=== PATIENT | male | born 1980 | race Caucasian/White ===

== ENCOUNTER 2023-08-23 18:47 | Inpatient (IN) | payer OTHER, MEDICAID ==
[~2023-08-23] VITALS: Ht 175.3 cm; Wt 74.0 kg
[2023-08-23 18:47] VITALS: BP_SYST 117; PULSE 73; RESP 18; TEMP 97.2; O2SAT 100
[2023-08-23] MEDS ORDERED: ASPIRIN 81 MG TAB.CHEW PO ONE (19:15)
[2023-08-23 20:23] LABS: BASOPHILS % (AUTO) 0.3 % (0.0-2.0); EOSINOPHILS % (AUTO) 0.8 % (0.0-4.0); HEMATOCRIT 22.5 % (36-54); HEMOGLOBIN 7.2 g/dL (14.0-18.0); LYMPHOCYTES # (AUTO) 0.9 K/uL (1.0-5.5); LYMPHOCYTES % (AUTO) 19.5 % (20.5-51.5); MEAN CORPUSCULAR HEMOGLOBIN 30 pg (27-31); MEAN CORPUSCULAR HGB CONC 32 % (32-36); MEAN CORPUSCULAR VOLUME 92 fL (79.0-98.0); MONOCYTES # (AUTO) 0.5 K/uL (0.0-1.0); MONOCYTES % (AUTO) 9.6 % (1.7-9.3); NEUTROPHILS # (AUTO) 3.3 K/uL (1.8-7.7); NEUTROPHILS % (AUTO) 69.8 % (40.0-70.0); PLATELET COUNT (AUTO) 293 K/uL (130-430); RED BLOOD CELL COUNT(AUTO) 2.45 MIL/uL (4.2-6.2); RED CELL DISTRIBUTION WIDTH 14.6 % (9.0-15.0); WHITE BLOOD COUNT (AUTO) 4.7 K/uL (4.8-10.8)
[2023-08-23] MEDS ORDERED: NACL 0.9% 1,000 ML IV ONE (20:30)
[2023-08-23] MEDS ORDERED: ATROPINE SULFATE 1 MG/10 ML SYRINGE IVP ONE (21:13)
[2023-08-23 21:23] LABS: ANION GAP 8 (5-15); CALCIUM 9.4 mg/dL (8.4-11.0); CARBON DIOXIDE 32 mmol/L (23-29); CHLORIDE 98 mmol/L (98-107); GFR AFRICAN AMERICAN 40 mL/min (>90); GLUCOSE 98 mg/dL (74-106); POTASSIUM 3.1 mmol/L (3.5-5.1); SODIUM SERUM 138 mmol/L (136-145); UREA NITROGEN, BLOOD 25 mg/dL (8-21)
[2023-08-23 21:25] LABS: GFR NON AFRICAN-AMERICAN 33 mL/min (>90)
[2023-08-23 21:40] LABS: ALANINE AMINOTRANSFERASE 86 U/L (12-78); ALBUMIN 2.6 g/dL (3.4-4.8); ASPARTATE AMINOTRANSFERASE 36 U/L (10-37); BILIRUBIN,DIRECT 0.2 mg/dL (0.0-0.3); TOTAL BILIRUBIN 0.7 mg/dL (0.0-1.0); TOTAL PROTEIN, SERUM 7.4 g/dL (6.4-8.3)
[2023-08-23] MEDS ORDERED: DOPamine PREMIX 250 ML IV ONE ×2 (22:41→23:00)
[2023-08-23 22:46] LABS: ABG O2 SAT% ESTIMATE 98.7 % (94.0-100.0); BLOOD GAS BASE EXCESS 8.9 mmol/L (-3.0-3.0); BLOOD GAS HCO3 29.7 mmol/L (21.0-27.0); BLOOD GAS PCO2 29.6 mmHg (32.0-45.0); BLOOD GAS PH 7.619 (7.350-7.450); BLOOD GAS PO2 111.2 mmHg (75.0-100.0)
[2023-08-23 23:06] LABS: BILIRUBIN,URINE NEGATIVE (NEGATIVE); BLOOD, URINE NEGATIVE (NEGATIVE); CLARITY/URINE CLEAR (CLEAR); COLOR,URINE YELLOW (YELLOW); GLUCOSE,URINE NEGATIVE (NEGATIVE); KETONES,URINE NEGATIVE (NEGATIVE); LEUKOCYTE ESTERASE ,URINE NEGATIVE (NEGATIVE); NITRITE, URINE POSITIVE (NEGATIVE); PH,URINE 7.5 (5.0-8.0); PROTEIN URINE 2+ (NEGATIVE); UROBILINOGEN,URINE 0.2 (0.2-1.0)
[2023-08-23 23:47] LABS: BACTERIA,URINE MODERATE /HPF (None Seen)
[2023-08-24] VITALS (32 sets, daily range): BP systolic 104–136; PULSE 62–98; RESP 14–26; TEMP 97.3–100.8; O2SAT 95–100
[2023-08-24] MEDS ORDERED: HYDR-4038 GT (00:32)
[2023-08-24] MEDS ORDERED: NEUTPHOSP GT (00:32)
[2023-08-24] MEDS ORDERED: ASCO500T20 GT (00:32)
[2023-08-24] MEDS ORDERED: NEPH GT (00:32)
[2023-08-24] MEDS ORDERED: LEVE1000 GT (00:32)
[2023-08-24] MEDS ORDERED: ACID1CAP2 GT (00:32)
[2023-08-24] MEDS ORDERED: ASA81 GT (00:32)
[2023-08-24] MEDS ORDERED: AMIN887L GT (00:32)
[2023-08-24] MEDS ORDERED: AMIO200T66 GT (00:32)
[2023-08-24] MEDS ORDERED: DOCU-144 GT (00:32)
[2023-08-24] MEDS ORDERED: MINE3.5O OP (00:32)
[2023-08-24] MEDS ORDERED: METO-290 GT (00:32)
[2023-08-24] MEDS ORDERED: ACET325T GT (00:32)
[2023-08-24 01:29] LABS: COVID19 ANTIGEN SOFIA FIA NEGATIVE (NEGATIVE)
[2023-08-24 01:30] LABS: INFLUENZA TYPE A Negative (NEGATIVE); INFLUENZA TYPE B NEGATIVE (NEGATIVE)
[2023-08-24] MEDS ORDERED: DOPamine PREMIX 250 ML IV PRN (02:45)
[2023-08-24 05:53] LABS: BASOPHILS % (AUTO) 0.7 % (0.0-2.0); EOSINOPHILS # (AUTO) 0.1 K/uL (0.0-0.4); EOSINOPHILS % (AUTO) 1.3 % (0.0-4.0); HEMATOCRIT 24.3 % (36-54); HEMOGLOBIN 7.9 g/dL (14.0-18.0); LYMPHOCYTES # (AUTO) 1.7 K/uL (1.0-5.5); LYMPHOCYTES % (AUTO) 23.9 % (20.5-51.5); MEAN CORPUSCULAR HEMOGLOBIN 30 pg (27-31); MEAN CORPUSCULAR HGB CONC 33 % (32-36); MEAN CORPUSCULAR VOLUME 92 fL (79.0-98.0); MONOCYTES # (AUTO) 0.6 K/uL (0.0-1.0); MONOCYTES % (AUTO) 8.9 % (1.7-9.3); NEUTROPHILS # (AUTO) 4.6 K/uL (1.8-7.7); NEUTROPHILS % (AUTO) 65.2 % (40.0-70.0); PLATELET COUNT (AUTO) 309 K/uL (130-430); RED BLOOD CELL COUNT(AUTO) 2.64 MIL/uL (4.2-6.2); RED CELL DISTRIBUTION WIDTH 14.8 % (9.0-15.0); WHITE BLOOD COUNT (AUTO) 7.1 K/uL (4.8-10.8)
[2023-08-24 06:20] LABS: ALBUMIN 2.7 g/dL (3.4-4.8); CALCIUM 9.6 mg/dL (8.4-11.0); CREATININE 2.62 mg/dL (0.55-1.30); THYROID STIMULATING HORMONE 0.82 uIu/mL (0.34-4.82); TOTAL BILIRUBIN 0.9 mg/dL (0.0-1.0)
[2023-08-24] MEDS ORDERED: NALOXONE HCL 0.4 MG/ML AMP (NARCAN) IVP PRN ×2 (07:45)
[2023-08-24] MEDS ORDERED: MAGNESIUM SULFATE 50 ML IV PRN (07:45)
[2023-08-24] MEDS ORDERED: DOCUSATE SODIUM 100 MG CAPSULE PO PRN (07:45)
[2023-08-24] MEDS ORDERED: ONDANSETRON HCL 4 MG/2 ML VIAL IVP PRN (07:45)
[2023-08-24] MEDS ORDERED: ZOLPIDEM TARTRATE 5 MG TABLET PO PRN (07:45)
[2023-08-24] MEDS ORDERED: MUPIROCIN 2% TOPICAL OINTMENT 22 GM NS PRN (07:45)
[2023-08-24] MEDS ORDERED: MORPHINE 2 MG/ML INJ. SYRINGE IVP PRN ×2 (07:45)
[2023-08-24] MEDS ORDERED: LORazepam 2 MG/ML VIAL IVP PRN (07:45)
[2023-08-24] MEDS ORDERED: LEVE500S9 GT (08:34)
[2023-08-24 08:36] LABS: TOTAL PROTEIN, SERUM 7.5 g/dL (6.4-8.3)
[2023-08-24] MEDS ORDERED: ACETAMINOPHEN 325 MG TABLET PO PRN ×2 (08:45)
[2023-08-24] MEDS: NAPH,MB-DB/K PH,MBDB 250 MG TAB GT SCH ×2 (10:18→20:03)
[2023-08-24] MEDS: AMIODARONE HCL 200 MG TABLET GT SCH ×2 (10:18→20:02)
[2023-08-24] MEDS: POTASSIUM CHLORIDE 20 MEQ TABLET.ER PO PRN (10:19)
[2023-08-24] MEDS: cefTRIAXone 1 GM in D5W 50 ML IV SCH (10:19)
[2023-08-24] MEDS: ASPIRIN 81 MG TAB.CHEW GT SCH (10:19)
[2023-08-24] MEDS: HEPARIN SODIUM,PORCINE 5,000 UNITS/ML VIAL SUBCUT SCH ×2 (10:20→21:01)
[2023-08-24] MEDS: LevETIRAcetam 500 MG/5 ML UDC ORAL LIQUID GT SCH ×2 (10:21→20:03)
[2023-08-24] MEDS ORDERED: BALSAM PERU/CASTOR OIL 56.7 GM OINT...G. TP ONE (12:30)
[2023-08-24] MEDS ORDERED: MINERAL OIL/PETROLATUM,WHITE 3.5 GM EYE OINT. OP PRN ×2 (15:00→15:21)
[2023-08-24] MEDS ORDERED: PEG 400/HYPROMELLOSE/GLYCERIN 15 ML DROPS OP PRN (15:00)
[2023-08-25] VITALS (30 sets, daily range): BP systolic 99–128; PULSE 64–83; RESP 14–22; TEMP 98–100.2; O2SAT 94–99
[2023-08-25 06:47] LABS: CREATININE 4.09 mg/dL (0.55-1.30); POTASSIUM 3.1 mmol/L (3.5-5.1)
[2023-08-25 07:30] LABS: BASOPHILS % (AUTO) 0.6 % (0.0-2.0); EOSINOPHILS # (AUTO) 0.1 K/uL (0.0-0.4); EOSINOPHILS % (AUTO) 1.6 % (0.0-4.0); LYMPHOCYTES # (AUTO) 1.2 K/uL (1.0-5.5); LYMPHOCYTES % (AUTO) 27.8 % (20.5-51.5); MEAN CORPUSCULAR HEMOGLOBIN 30 pg (27-31); MEAN CORPUSCULAR HGB CONC 33 % (32-36); MEAN CORPUSCULAR VOLUME 93 fL (79.0-98.0); MONOCYTES # (AUTO) 0.3 K/uL (0.0-1.0); MONOCYTES % (AUTO) 7.3 % (1.7-9.3); NEUTROPHILS # (AUTO) 2.8 K/uL (1.8-7.7); NEUTROPHILS % (AUTO) 62.7 % (40.0-70.0); PLATELET COUNT (AUTO) 311 K/uL (130-430); RED BLOOD CELL COUNT(AUTO) 2.18 MIL/uL (4.2-6.2); RED CELL DISTRIBUTION WIDTH 14.9 % (9.0-15.0); WHITE BLOOD COUNT (AUTO) 4.4 K/uL (4.8-10.8)
[2023-08-25 08:22] LABS: HEMATOCRIT 20.3 % (36-54); HEMOGLOBIN 6.6 g/dL (14.0-18.0)
[2023-08-25] MEDS: NAPH,MB-DB/K PH,MBDB 250 MG TAB GT SCH ×2 (10:08→20:46)
[2023-08-25] MEDS: ASPIRIN 81 MG TAB.CHEW GT SCH (10:08)
[2023-08-25] MEDS: LevETIRAcetam 500 MG/5 ML UDC ORAL LIQUID GT SCH ×2 (10:08→20:46)
[2023-08-25] MEDS: POTASSIUM CHLORIDE 20 MEQ TABLET.ER PO PRN (10:08)
[2023-08-25] MEDS: cefTRIAXone 1 GM in D5W 50 ML IV SCH (10:09)
[2023-08-25] MEDS: AMIODARONE HCL 200 MG TABLET GT SCH ×2 (10:09→20:46)
[2023-08-25] MEDS: BALSAM PERU/CASTOR OIL 56.7 GM OINT...G. TP SCH (10:11)
[2023-08-25] MEDS: HEPARIN SODIUM,PORCINE 5,000 UNITS/ML VIAL SUBCUT SCH ×2 (10:14→20:47)
[2023-08-25] MEDS ORDERED: VANCOMYCIN HCL 1,250 MG in NS 250 ML IV ONE (11:00)
[2023-08-25] MEDS ORDERED: HEPARIN SODIUM, PORCINE 10,000 UNITS/ 10 ML VIAL MC ONE (12:00)
[2023-08-25] MEDS ORDERED: EPOETIN ALFA 3,000 UNITS/ML VIAL SUBCUT SCH (19:30)
[2023-08-26] VITALS (19 sets, daily range): BP systolic 105–135; PULSE 67–98; RESP 16–18; TEMP 98.3–99.3; O2SAT 97–100
[2023-08-26 06:33] LABS: BASOPHILS # (AUTO) 0.1 K/uL (0.0-0.2); BASOPHILS % (AUTO) 0.9 % (0.0-2.0); EOSINOPHILS # (AUTO) 0.1 K/uL (0.0-0.4); EOSINOPHILS % (AUTO) 1.6 % (0.0-4.0); HEMATOCRIT 25.2 % (36-54); HEMOGLOBIN 8.1 g/dL (14.0-18.0); LYMPHOCYTES # (AUTO) 1.3 K/uL (1.0-5.5); LYMPHOCYTES % (AUTO) 23.9 % (20.5-51.5); MEAN CORPUSCULAR HEMOGLOBIN 30 pg (27-31); MEAN CORPUSCULAR HGB CONC 32 % (32-36); MEAN CORPUSCULAR VOLUME 93 fL (79.0-98.0); MONOCYTES # (AUTO) 0.4 K/uL (0.0-1.0); MONOCYTES % (AUTO) 6.5 % (1.7-9.3); NEUTROPHILS # (AUTO) 3.7 K/uL (1.8-7.7); NEUTROPHILS % (AUTO) 67.1 % (40.0-70.0); PLATELET COUNT (AUTO) 291 K/uL (130-430); RED BLOOD CELL COUNT(AUTO) 2.71 MIL/uL (4.2-6.2); WHITE BLOOD COUNT (AUTO) 5.5 K/uL (4.8-10.8)
[2023-08-26 07:07] LABS: CREATININE 3.09 mg/dL (0.55-1.30); POTASSIUM 4.1 mmol/L (3.5-5.1)
[2023-08-26] MEDS: cefTRIAXone 1 GM in D5W 50 ML IV SCH (09:04)
[2023-08-26] MEDS: NAPH,MB-DB/K PH,MBDB 250 MG TAB GT SCH ×2 (09:05→22:03)
[2023-08-26] MEDS: ASPIRIN 81 MG TAB.CHEW GT SCH (09:05)
[2023-08-26] MEDS: AMIODARONE HCL 200 MG TABLET GT SCH ×2 (09:05→22:03)
[2023-08-26] MEDS: LevETIRAcetam 500 MG/5 ML UDC ORAL LIQUID GT SCH ×2 (09:10→22:03)
[2023-08-26] MEDS: HEPARIN SODIUM,PORCINE 5,000 UNITS/ML VIAL SUBCUT SCH ×2 (09:12→22:05)
[2023-08-26] MEDS: BALSAM PERU/CASTOR OIL 56.7 GM OINT...G. TP SCH (09:15)
[2023-08-26] MEDS ORDERED: VANCOMYCIN HCL 1,000 MG in NS 250 ML IV ONE (13:00)
[2023-08-27] VITALS (17 sets, daily range): BP systolic 103–149; PULSE 63–84; RESP 16; TEMP 97.8–98.9; O2SAT 92–100
[2023-08-27 04:53] LABS: BASOPHILS % (AUTO) 0.7 % (0.0-2.0); EOSINOPHILS # (AUTO) 0.1 K/uL (0.0-0.4); EOSINOPHILS % (AUTO) 1.8 % (0.0-4.0); HEMATOCRIT 24.5 % (36-54); HEMOGLOBIN 7.8 g/dL (14.0-18.0); LYMPHOCYTES # (AUTO) 1.4 K/uL (1.0-5.5); LYMPHOCYTES % (AUTO) 26.2 % (20.5-51.5); MEAN CORPUSCULAR HEMOGLOBIN 30 pg (27-31); MEAN CORPUSCULAR HGB CONC 32 % (32-36); MEAN CORPUSCULAR VOLUME 94 fL (79.0-98.0); MONOCYTES # (AUTO) 0.3 K/uL (0.0-1.0); MONOCYTES % (AUTO) 5.8 % (1.7-9.3); NEUTROPHILS # (AUTO) 3.6 K/uL (1.8-7.7); NEUTROPHILS % (AUTO) 65.5 % (40.0-70.0); PLATELET COUNT (AUTO) 283 K/uL (130-430); RED BLOOD CELL COUNT(AUTO) 2.61 MIL/uL (4.2-6.2); WHITE BLOOD COUNT (AUTO) 5.5 K/uL (4.8-10.8)
[2023-08-27 05:13] LABS: CALCIUM 9.1 mg/dL (8.4-11.0); CREATININE 3.99 mg/dL (0.55-1.30); POTASSIUM 4.1 mmol/L (3.5-5.1)
[2023-08-27] MEDS: NAPH,MB-DB/K PH,MBDB 250 MG TAB GT SCH ×2 (08:47→23:05)
[2023-08-27] MEDS: ASPIRIN 81 MG TAB.CHEW GT SCH (08:48)
[2023-08-27] MEDS: AMIODARONE HCL 200 MG TABLET GT SCH ×2 (08:48→23:04)
[2023-08-27] MEDS: BALSAM PERU/CASTOR OIL 56.7 GM OINT...G. TP SCH (08:51)
[2023-08-27] MEDS: HEPARIN SODIUM,PORCINE 5,000 UNITS/ML VIAL SUBCUT SCH ×2 (08:51→23:07)
[2023-08-27] MEDS: cefTRIAXone 1 GM in D5W 50 ML IV SCH (08:53)
[2023-08-27] MEDS: LevETIRAcetam 500 MG/5 ML UDC ORAL LIQUID GT SCH ×2 (08:54→23:05)
[2023-08-28] VITALS (17 sets, daily range): BP systolic 93–129; PULSE 74–96; RESP 16–18; TEMP 97.4–101.7; O2SAT 93–99
[2023-08-28 06:45] LABS: BASOPHILS # (AUTO) 0.1 K/uL (0.0-0.2); BASOPHILS % (AUTO) 1.4 % (0.0-2.0); EOSINOPHILS # (AUTO) 0.1 K/uL (0.0-0.4); EOSINOPHILS % (AUTO) 1.1 % (0.0-4.0); HEMATOCRIT 24.7 % (36-54); HEMOGLOBIN 7.9 g/dL (14.0-18.0); LYMPHOCYTES # (AUTO) 1.2 K/uL (1.0-5.5); LYMPHOCYTES % (AUTO) 18.5 % (20.5-51.5); MEAN CORPUSCULAR HEMOGLOBIN 30 pg (27-31); MEAN CORPUSCULAR HGB CONC 32 % (32-36); MEAN CORPUSCULAR VOLUME 94 fL (79.0-98.0); MONOCYTES # (AUTO) 0.3 K/uL (0.0-1.0); MONOCYTES % (AUTO) 4.9 % (1.7-9.3); NEUTROPHILS # (AUTO) 4.6 K/uL (1.8-7.7); NEUTROPHILS % (AUTO) 74.1 % (40.0-70.0); PLATELET COUNT (AUTO) 286 K/uL (130-430); RED BLOOD CELL COUNT(AUTO) 2.63 MIL/uL (4.2-6.2); RED CELL DISTRIBUTION WIDTH 14.9 % (9.0-15.0); WHITE BLOOD COUNT (AUTO) 6.3 K/uL (4.8-10.8)
[2023-08-28 07:33] LABS: CALCIUM 9.8 mg/dL (8.4-11.0); CREATININE 4.6 mg/dL (0.55-1.30); POTASSIUM 4.3 mmol/L (3.5-5.1); VANCOMYCIN,RANDOM 25.3 ug/mL (20.0-30.0)
[2023-08-28] MEDS: ASPIRIN 81 MG TAB.CHEW GT SCH (08:29)
[2023-08-28] MEDS: NAPH,MB-DB/K PH,MBDB 250 MG TAB GT SCH ×2 (08:29→22:00)
[2023-08-28] MEDS: AMIODARONE HCL 200 MG TABLET GT SCH ×2 (08:29→21:00)
[2023-08-28] MEDS: ACETAMINOPHEN 325 MG TABLET PO PRN ×2 (08:30→22:01)
[2023-08-28] MEDS: HEPARIN SODIUM,PORCINE 5,000 UNITS/ML VIAL SUBCUT SCH ×2 (08:30→22:07)
[2023-08-28] MEDS: BALSAM PERU/CASTOR OIL 56.7 GM OINT...G. TP SCH (08:35)
[2023-08-28] MEDS: LevETIRAcetam 500 MG/5 ML UDC ORAL LIQUID GT SCH ×2 (08:39→22:02)
[2023-08-28] MEDS: cefTRIAXone 1 GM in D5W 50 ML IV SCH (09:06)
[2023-08-28] MEDS ORDERED: NS 500 ML IV ONE ×2 (17:00→19:45)
[2023-08-28] MEDS ORDERED: SIMETHICONE 80 MG TAB.CHEW GT ONE (18:15)
[2023-08-28] MEDS ORDERED: METOCLOPRAMIDE HCL 10 MG/2 ML VIAL IVP ONE (18:15)
[2023-08-28] MEDS ORDERED: MIDODRINE HCL 5 MG TABLET (PROAMATINE) PO ONE (18:45)
[2023-08-29] VITALS (17 sets, daily range): BP systolic 104–127; PULSE 72–92; RESP 16–21; TEMP 97.1–100.7; O2SAT 95–100
[2023-08-29 06:44] LABS: BASOPHILS # (AUTO) 0.1 K/uL (0.0-0.2); BASOPHILS % (AUTO) 0.8 % (0.0-2.0); EOSINOPHILS # (AUTO) 0.1 K/uL (0.0-0.4); EOSINOPHILS % (AUTO) 0.8 % (0.0-4.0); HEMATOCRIT 27.9 % (36-54); HEMOGLOBIN 9.1 g/dL (14.0-18.0); LYMPHOCYTES # (AUTO) 1.7 K/uL (1.0-5.5); LYMPHOCYTES % (AUTO) 22.8 % (20.5-51.5); MEAN CORPUSCULAR HEMOGLOBIN 30 pg (27-31); MEAN CORPUSCULAR HGB CONC 33 % (32-36); MEAN CORPUSCULAR VOLUME 93 fL (79.0-98.0); MONOCYTES # (AUTO) 0.4 K/uL (0.0-1.0); MONOCYTES % (AUTO) 5.5 % (1.7-9.3); NEUTROPHILS # (AUTO) 5.1 K/uL (1.8-7.7); NEUTROPHILS % (AUTO) 70.1 % (40.0-70.0); PLATELET COUNT (AUTO) 295 K/uL (130-430); RED CELL DISTRIBUTION WIDTH 15.1 % (9.0-15.0); WHITE BLOOD COUNT (AUTO) 7.3 K/uL (4.8-10.8)
[2023-08-29 07:08] LABS: CALCIUM 9.3 mg/dL (8.4-11.0); CREATININE 3.61 mg/dL (0.55-1.30); VANCOMYCIN,RANDOM 15.7 ug/mL (20.0-30.0)
[2023-08-29] MEDS: NAPH,MB-DB/K PH,MBDB 250 MG TAB GT SCH (08:21)
[2023-08-29] MEDS: ASPIRIN 81 MG TAB.CHEW GT SCH (08:21)
[2023-08-29] MEDS: LevETIRAcetam 500 MG/5 ML UDC ORAL LIQUID GT SCH (08:21)
[2023-08-29] MEDS: AMIODARONE HCL 200 MG TABLET GT SCH (08:22)
[2023-08-29] MEDS: ACETAMINOPHEN 325 MG TABLET PO PRN (08:22)
[2023-08-29] MEDS: HEPARIN SODIUM,PORCINE 5,000 UNITS/ML VIAL SUBCUT SCH (08:24)
[2023-08-29] MEDS: BALSAM PERU/CASTOR OIL 56.7 GM OINT...G. TP SCH (09:14)
[2023-08-29] MEDS: cefTRIAXone 1 GM in D5W 50 ML IV SCH (10:30)
[2023-08-29] MEDS ORDERED: VANCOMYCIN HCL 1,000 MG in NS 250 ML IV ONE (11:00)
[2023-08-29] MEDS ORDERED: MIDO10TA PO (13:48)
[2023-08-29] MEDS ORDERED: METOCLOPRAMIDE HCL 10 MG/2 ML VIAL IVP ONE (14:00)
[2023-08-29] MEDS ORDERED: METOCLOPRAMIDE HCL 10 MG/2 ML VIAL IVP SCH (18:00)
== END 2023-08-29 15:30 | DRG 314 ==
LOC: SED 18:47 → SIC 23:00 → STU 08-27 19:37
PROVIDERS: ADMIT General Practice; ATTEND General Practice
PROC: 5A1955Z Respiratory Ventilation, Greater than 96 Consecutive Hours (ICD-10-PCS; principal; 2023-08-23)
PROC: 0BH17EZ Insertion of Endotracheal Airway into Trachea, Via Natural or Artificial Opening (ICD-10-PCS; 2023-08-23)
PROC: 30233N1 Transfusion of Nonautologous Red Blood Cells into Peripheral Vein, Percutaneous Approach (ICD-10-PCS; 2023-08-25)
PROC: 5A1D70Z Performance of Urinary Filtration, Intermittent, Less than 6 Hours Per Day (ICD-10-PCS; 2023-08-25)
PROC: 5A1D70Z Performance of Urinary Filtration, Intermittent, Less than 6 Hours Per Day (ICD-10-PCS; 2023-08-28)
DX: T80.211A Bloodstream infection due to central venous catheter, initial encounter (principal); E43 Unspecified severe protein-calorie malnutrition; L89.154 Pressure ulcer of sacral region, stage 4; N18.6 End stage renal disease; N17.0 Acute kidney failure with tubular necrosis; R53.2 Functional quadriplegia; J96.20 Acute and chronic respiratory failure, unspecified whether with hypoxia or hypercapnia; J18.9 Pneumonia, unspecified organism; N39.0 Urinary tract infection, site not specified; G93.40 Encephalopathy, unspecified; Z20.822 Contact with and (suspected) exposure to COVID-19; Z68.21 Body mass index [BMI] 21.0-21.9, adult; D63.8 Anemia in other chronic diseases classified elsewhere; I48.91 Unspecified atrial fibrillation; R13.10 Dysphagia, unspecified; Z74.01 Bed confinement status; Z88.8 Allergy status to other drugs, medicaments and biological substances
CPT/HCPCS: 36415; 36600; 70450-TC; 71045; 76376; 80048; 80053; 80076; 80202; 81000; 81001; 81015; 82803; 82962; 83037; 83605; 83735; 83880; 84443; 84484; 85025; 85651-TC; 86886; 86900; 86901; 86920; 87040; 87070-TC; 87081; 87086; 87186-TC; 87205-TC; 90935; 90937; 93005; 93306; 94002; 94003; 94760; 96365; 99285; G0378; J0461; J0696; J0885; J1265; J1644; J2765; J3370; J7050; J7060; P9021

== ENCOUNTER 2023-09-11 11:57 | Inpatient (IN) | payer OTHER, MEDICAID ==
[~2023-09-11] VITALS: Ht 170.2 cm; Wt 63.5 kg
[~2023-09-11 11:57] MED LIST: ACET325T GT; ACID1CAP2 GT; AMIN887L GT; AMIO200T66 GT; ASA81 GT; ASCO500T20 GT; DOCU-144 GT; HYDR-4038 GT; LEVE500S9 GT; METO-290 GT; MIDO10TA PO; MINE3.5O OP; NEPH GT; NEUTPHOSP GT
[2023-09-11 12:09] VITALS: BP_SYST 109; PULSE 104; RESP 22; TEMP 101.1; O2SAT 99
[2023-09-11] MEDS ORDERED: PIPERACILLIN/TAZO 3.375 GM in D5W 50 ML IV ONE (12:15)
[2023-09-11] MEDS ORDERED: PIPERACILLIN/TAZOBACTAM 3.375 GM/VIAL (ZOSYN) IV ONE (12:21)
[2023-09-11] MEDS ORDERED: NACL 0.9% 1,000 ML IV ONE (12:30)
[2023-09-11] MEDS ORDERED: ACETAMINOPHEN CHILDREN'S 160 MG/5 ML UDC ORAL.SUSP PO ONE (12:30)
[2023-09-11 12:43] LABS: BASOPHILS % (AUTO) 0.7 % (0.0-2.0); EOSINOPHILS % (AUTO) 0.5 % (0.0-4.0); HEMOGLOBIN 7.1 g/dL (14.0-18.0); LYMPHOCYTES # (AUTO) 1.2 K/uL (1.0-5.5); LYMPHOCYTES % (AUTO) 18.2 % (20.5-51.5); MEAN CORPUSCULAR HEMOGLOBIN 30 pg (27-31); MEAN CORPUSCULAR HGB CONC 33 % (32-36); MEAN CORPUSCULAR VOLUME 94 fL (79.0-98.0); MONOCYTES # (AUTO) 0.6 K/uL (0.0-1.0); MONOCYTES % (AUTO) 8.6 % (1.7-9.3); NEUTROPHILS # (AUTO) 4.8 K/uL (1.8-7.7); PLATELET COUNT (AUTO) 239 K/uL (130-430); RED BLOOD CELL COUNT(AUTO) 2.33 MIL/uL (4.2-6.2); RED CELL DISTRIBUTION WIDTH 14.6 % (9.0-15.0); WHITE BLOOD COUNT (AUTO) 6.6 K/uL (4.8-10.8)
[2023-09-11 12:56] LABS: INR 1.1 (0.80-1.20)
[2023-09-11 13:02] LABS: ALANINE AMINOTRANSFERASE 829 U/L (12-78); ASPARTATE AMINOTRANSFERASE 805 U/L (10-37); BILIRUBIN,DIRECT 0.2 mg/dL (0.0-0.3); TOTAL BILIRUBIN 0.5 mg/dL (0.0-1.0); TOTAL PROTEIN, SERUM 7.9 g/dL (6.4-8.3)
[2023-09-11 13:09] LABS: HEMATOCRIT 21.8 % (36-54)
[2023-09-11] MEDS ORDERED: LORazepam 2 MG/ML VIAL IVP PRN (13:30)
[2023-09-11] MEDS ORDERED: MUPIROCIN 2% TOPICAL OINTMENT 22 GM NS PRN (13:30)
[2023-09-11] MEDS ORDERED: MAGNESIUM SULFATE 50 ML IV PRN (13:30)
[2023-09-11] MEDS ORDERED: MORPHINE 2 MG/ML INJ. SYRINGE IVP PRN ×2 (13:30)
[2023-09-11] MEDS ORDERED: POTASSIUM CHLORIDE 20 MEQ TABLET.ER PO PRN (13:30)
[2023-09-11] MEDS ORDERED: DOCUSATE SODIUM 100 MG CAPSULE PO PRN (13:30)
[2023-09-11] MEDS ORDERED: ZOLPIDEM TARTRATE 5 MG TABLET PO PRN (13:30)
[2023-09-11] MEDS ORDERED: DOCUSATE SODIUM 100 MG/10 ML UDC PO PRN (13:45)
[2023-09-11] MEDS ORDERED: ACETAMINOPHEN 500 MG TABLET PO PRN (13:45)
[2023-09-11 14:22] LABS: TOTAL IRON BIND. CAPACITY 200 ug/dL (250-450)
[2023-09-11 14:53] LABS: CALCIUM 9.7 mg/dL (8.4-11.0); CREATININE 5.9 mg/dL (0.55-1.30); POTASSIUM 3.3 mmol/L (3.5-5.1)
[2023-09-11 15:59] VITALS: BP_SYST 133; PULSE 84
[2023-09-11 16:51] VITALS: BP_SYST 133; PULSE 84; O2SAT 99
[2023-09-11 17:50] VITALS: PULSE 86
[2023-09-11] MEDS ORDERED: HEPARIN SODIUM,PORCINE 5,000 UNITS/ML VIAL MC ONE (19:30)
[2023-09-11] MEDS ORDERED: hydrALAZINE HCL 25 MG TABLET GT SCH (21:00)
[2023-09-11 21:23] VITALS: BP_SYST 103; PULSE 101
[2023-09-11] MEDS: AMIODARONE HCL 200 MG TABLET GT SCH (22:25)
[2023-09-11] MEDS: NAPH,MB-DB/K PH,MBDB 250 MG TAB GT SCH (22:26)
[2023-09-11] MEDS: LevETIRAcetam 500 MG/5 ML UDC ORAL LIQUID GT SCH (22:26)
[2023-09-11] MEDS: ACETAMINOPHEN 500 MG TABLET PO PRN (23:07)
[2023-09-11] MEDS: IPRATROPIUM/ALBUTEROL SULFATE 3 ML AMPUL.NEB (DUONEB) INH PRN (23:48)
[2023-09-11 23:49] VITALS: BP_SYST 114; PULSE 80
[2023-09-12] VITALS (13 sets, daily range): BP systolic 101–144; PULSE 78–106; RESP 16–22; TEMP 98.6–99; O2SAT 97
[2023-09-12 05:21] LABS: BASOPHILS % (AUTO) 0.5 % (0.0-2.0); EOSINOPHILS # (AUTO) 0.1 K/uL (0.0-0.4); EOSINOPHILS % (AUTO) 1.7 % (0.0-4.0); HEMATOCRIT 26.6 % (36-54); HEMOGLOBIN 8.6 g/dL (14.0-18.0); LYMPHOCYTES # (AUTO) 1.3 K/uL (1.0-5.5); LYMPHOCYTES % (AUTO) 18.5 % (20.5-51.5); MEAN CORPUSCULAR HEMOGLOBIN 28 pg (27-31); MEAN CORPUSCULAR HGB CONC 32 % (32-36); MEAN CORPUSCULAR VOLUME 88 fL (79.0-98.0); MONOCYTES # (AUTO) 0.6 K/uL (0.0-1.0); MONOCYTES % (AUTO) 8.6 % (1.7-9.3); NEUTROPHILS # (AUTO) 5.2 K/uL (1.8-7.7); NEUTROPHILS % (AUTO) 70.7 % (40.0-70.0); PLATELET COUNT (AUTO) 232 K/uL (130-430); RED BLOOD CELL COUNT(AUTO) 3.01 MIL/uL (4.2-6.2); RED CELL DISTRIBUTION WIDTH 19.1 % (9.0-15.0); WHITE BLOOD COUNT (AUTO) 7.3 K/uL (4.8-10.8)
[2023-09-12 05:46] LABS: ALBUMIN 3.3 g/dL (3.4-4.8); BILIRUBIN,DIRECT 0.3 mg/dL (0.0-0.3); CALCIUM 9.7 mg/dL (8.4-11.0); CREATININE 3.28 mg/dL (0.55-1.30); POTASSIUM 4.2 mmol/L (3.5-5.1); TOTAL BILIRUBIN 0.8 mg/dL (0.0-1.0); TOTAL PROTEIN, SERUM 8.4 g/dL (6.4-8.3)
[2023-09-12] MEDS: IPRATROPIUM/ALBUTEROL SULFATE 3 ML AMPUL.NEB (DUONEB) INH PRN ×2 (07:12→16:08)
[2023-09-12] MEDS ORDERED: NON-FORMULARY MEDICATION (Amino Acids/Protein Hydrolys (Pro-Stat Liquid) 30 ML) GT SCH (09:00)
[2023-09-12] MEDS: LevETIRAcetam 500 MG/5 ML UDC ORAL LIQUID GT SCH ×2 (09:21→21:49)
[2023-09-12] MEDS: ASCORBIC ACID 500 MG TABLET GT SCH (09:22)
[2023-09-12] MEDS: DOCUSATE SODIUM 100 MG/10 ML UDC PO SCH (09:22)
[2023-09-12] MEDS: ASPIRIN 81 MG TAB.CHEW GT SCH (09:23)
[2023-09-12] MEDS: NEPHROVITE, (FOLIC ACID/VITAMIN B COMP W-C 1 TAB) GT SCH (09:23)
[2023-09-12] MEDS: NAPH,MB-DB/K PH,MBDB 250 MG TAB GT SCH ×2 (09:24→21:45)
[2023-09-12] MEDS: AMIODARONE HCL 200 MG TABLET GT SCH ×2 (09:25→21:48)
[2023-09-12] MEDS ORDERED: CEFEPIME 1 GM in D5W 50 ML IV ONE (10:00)
[2023-09-12] MEDS ORDERED: VANCOMYCIN HCL 1,250 MG in NS 250 ML IV ONE (11:00)
[2023-09-12] MEDS ORDERED: AMIN30LI2 PO (17:27)
[2023-09-12] MEDS ORDERED: ASCO500C18 PO (17:27)
[2023-09-12] MEDS ORDERED: LACEYEO OP (17:27)
[2023-09-12] MEDS ORDERED: LACT1TAB21 PO (17:27)
[2023-09-12] MEDS ORDERED: COLL100 PO (17:27)
[2023-09-12] MEDS ORDERED: SIME80TA15 PO (17:51)
[2023-09-12] MEDS ORDERED: ACET325T53 PO (17:51)
[2023-09-12] MEDS ORDERED: ONDA-8 TL (17:51)
[2023-09-12] MEDS ORDERED: TYLL650 PO (17:51)
[2023-09-12] MEDS ORDERED: ACETAMINOPHEN 650 MG/20.3 ML UDC GT ONE (19:00)
[2023-09-13] VITALS (13 sets, daily range): BP systolic 103–142; PULSE 94–118; RESP 16–22; TEMP 98.7–102.5; O2SAT 96–98
[2023-09-13 06:15] LABS: BASOPHILS % (AUTO) 0.6 % (0.0-2.0); EOSINOPHILS # (AUTO) 0.1 K/uL (0.0-0.4); EOSINOPHILS % (AUTO) 1.3 % (0.0-4.0); HEMATOCRIT 27.2 % (36-54); HEMOGLOBIN 8.7 g/dL (14.0-18.0); LYMPHOCYTES # (AUTO) 0.8 K/uL (1.0-5.5); LYMPHOCYTES % (AUTO) 11.2 % (20.5-51.5); MEAN CORPUSCULAR HEMOGLOBIN 29 pg (27-31); MEAN CORPUSCULAR HGB CONC 32 % (32-36); MEAN CORPUSCULAR VOLUME 90 fL (79.0-98.0); MONOCYTES # (AUTO) 0.5 K/uL (0.0-1.0); MONOCYTES % (AUTO) 6.6 % (1.7-9.3); NEUTROPHILS % (AUTO) 80.3 % (40.0-70.0); PLATELET COUNT (AUTO) 259 K/uL (130-430); RED BLOOD CELL COUNT(AUTO) 3.04 MIL/uL (4.2-6.2); RED CELL DISTRIBUTION WIDTH 19.6 % (9.0-15.0); WHITE BLOOD COUNT (AUTO) 7.5 K/uL (4.8-10.8)
[2023-09-13 06:34] LABS: CALCIUM 9.3 mg/dL (8.4-11.0); CREATININE 5.25 mg/dL (0.55-1.30); POTASSIUM 3.8 mmol/L (3.5-5.1)
[2023-09-13] MEDS: ONDANSETRON HCL 4 MG/2 ML VIAL IVP PRN (06:43)
[2023-09-13 06:48] LABS: VANCOMYCIN,RANDOM 33.1 ug/mL (20.0-30.0)
[2023-09-13] MEDS: ACETAMINOPHEN 500 MG TABLET PO PRN (06:49)
[2023-09-13 07:06] LABS: FOLATE (FOLIC ACID) >20.0 ng/mL (>3.0)
[2023-09-13] MEDS: DOCUSATE SODIUM 100 MG/10 ML UDC PO SCH (09:46)
[2023-09-13] MEDS: ASCORBIC ACID 500 MG TABLET GT SCH (09:47)
[2023-09-13] MEDS: ASPIRIN 81 MG TAB.CHEW GT SCH (09:47)
[2023-09-13] MEDS: AMIODARONE HCL 200 MG TABLET GT SCH ×2 (09:47→21:14)
[2023-09-13] MEDS: NEPHROVITE, (FOLIC ACID/VITAMIN B COMP W-C 1 TAB) GT SCH (09:47)
[2023-09-13] MEDS: CEFEPIME 1 GM in D5W 50 ML IV SCH (09:48)
[2023-09-13] MEDS: NAPH,MB-DB/K PH,MBDB 250 MG TAB GT SCH ×2 (10:02→21:13)
[2023-09-13] MEDS: LevETIRAcetam 500 MG/5 ML UDC ORAL LIQUID GT SCH ×2 (10:02→21:00)
[2023-09-13] MEDS ORDERED: HEPARIN SODIUM,PORCINE 5,000 UNITS/ML VIAL MC ONE ×2 (15:00→15:15)
[2023-09-13] MEDS: FERROUS SULFATE 300 MG/5 ML UDC GT SCH (21:13)
[2023-09-13] MEDS ORDERED: LevETIRAcetam 500 MG/5 ML UDC ORAL LIQUID ONE (22:09)
[2023-09-14] VITALS (16 sets, daily range): BP systolic 106–125; PULSE 102–117; RESP 16–21; TEMP 98.8–100.5; O2SAT 97–100
[2023-09-14 06:15] LABS: BASOPHILS # (AUTO) 0.1 K/uL (0.0-0.2); BASOPHILS % (AUTO) 0.6 % (0.0-2.0); EOSINOPHILS # (AUTO) 0.1 K/uL (0.0-0.4); EOSINOPHILS % (AUTO) 1.3 % (0.0-4.0); HEMATOCRIT 28.7 % (36-54); HEMOGLOBIN 9.3 g/dL (14.0-18.0); LYMPHOCYTES # (AUTO) 1.3 K/uL (1.0-5.5); LYMPHOCYTES % (AUTO) 14.7 % (20.5-51.5); MEAN CORPUSCULAR HEMOGLOBIN 29 pg (27-31); MEAN CORPUSCULAR HGB CONC 32 % (32-36); MEAN CORPUSCULAR VOLUME 90 fL (79.0-98.0); MONOCYTES # (AUTO) 0.6 K/uL (0.0-1.0); MONOCYTES % (AUTO) 6.9 % (1.7-9.3); NEUTROPHILS # (AUTO) 6.7 K/uL (1.8-7.7); NEUTROPHILS % (AUTO) 76.5 % (40.0-70.0); PLATELET COUNT (AUTO) 294 K/uL (130-430); RED BLOOD CELL COUNT(AUTO) 3.19 MIL/uL (4.2-6.2); RED CELL DISTRIBUTION WIDTH 19.5 % (9.0-15.0); WHITE BLOOD COUNT (AUTO) 8.7 K/uL (4.8-10.8)
[2023-09-14 06:57] LABS: CALCIUM 9.1 mg/dL (8.4-11.0); POTASSIUM 3.9 mmol/L (3.5-5.1); VANCOMYCIN,RANDOM 19.2 ug/mL (20.0-30.0)
[2023-09-14] MEDS: NEPHROVITE, (FOLIC ACID/VITAMIN B COMP W-C 1 TAB) GT SCH (08:28)
[2023-09-14] MEDS: NAPH,MB-DB/K PH,MBDB 250 MG TAB GT SCH ×2 (08:28→20:46)
[2023-09-14] MEDS: ASCORBIC ACID 500 MG TABLET GT SCH (08:28)
[2023-09-14] MEDS: AMIODARONE HCL 200 MG TABLET GT SCH ×2 (08:29→20:46)
[2023-09-14] MEDS: FERROUS SULFATE 300 MG/5 ML UDC GT SCH ×2 (08:29→20:46)
[2023-09-14] MEDS: DOCUSATE SODIUM 100 MG/10 ML UDC PO SCH (08:29)
[2023-09-14] MEDS: ASPIRIN 81 MG TAB.CHEW GT SCH (08:30)
[2023-09-14] MEDS: CEFEPIME 1 GM in D5W 50 ML IV SCH (08:31)
[2023-09-14] MEDS: LevETIRAcetam 500 MG/5 ML UDC ORAL LIQUID GT SCH ×2 (09:08→21:34)
[2023-09-14] MEDS: IPRATROPIUM/ALBUTEROL SULFATE 3 ML AMPUL.NEB (DUONEB) INH PRN (21:11)
[2023-09-14] MEDS ORDERED: levETIRAcetam 500 MG TABLET ONE (21:27)
[2023-09-15] VITALS (17 sets, daily range): BP systolic 108–119; PULSE 107–121; RESP 16; TEMP 98–100.2; O2SAT 98–100
[2023-09-15 06:59] LABS: BASOPHILS # (AUTO) 0.1 K/uL (0.0-0.2); BASOPHILS % (AUTO) 0.5 % (0.0-2.0); EOSINOPHILS % (AUTO) 0.1 % (0.0-4.0); HEMATOCRIT 25.7 % (36-54); HEMOGLOBIN 8.5 g/dL (14.0-18.0); LYMPHOCYTES % (AUTO) 7.4 % (20.5-51.5); MEAN CORPUSCULAR HEMOGLOBIN 29 pg (27-31); MEAN CORPUSCULAR HGB CONC 33 % (32-36); MEAN CORPUSCULAR VOLUME 88 fL (79.0-98.0); MONOCYTES # (AUTO) 0.5 K/uL (0.0-1.0); MONOCYTES % (AUTO) 3.7 % (1.7-9.3); NEUTROPHILS # (AUTO) 11.3 K/uL (1.8-7.7); NEUTROPHILS % (AUTO) 88.3 % (40.0-70.0); PLATELET COUNT (AUTO) 257 K/uL (130-430); RED BLOOD CELL COUNT(AUTO) 2.91 MIL/uL (4.2-6.2); RED CELL DISTRIBUTION WIDTH 19.1 % (9.0-15.0); WHITE BLOOD COUNT (AUTO) 12.8 K/uL (4.8-10.8)
[2023-09-15 07:11] LABS: CALCIUM 9.4 mg/dL (8.4-11.0); CREATININE 6.85 mg/dL (0.55-1.30); POTASSIUM 3.7 mmol/L (3.5-5.1)
[2023-09-15] MEDS: NAPH,MB-DB/K PH,MBDB 250 MG TAB GT SCH ×2 (09:50→22:42)
[2023-09-15] MEDS: DOCUSATE SODIUM 100 MG/10 ML UDC PO SCH (09:50)
[2023-09-15] MEDS: ASCORBIC ACID 500 MG TABLET GT SCH (09:50)
[2023-09-15] MEDS: NEPHROVITE, (FOLIC ACID/VITAMIN B COMP W-C 1 TAB) GT SCH (09:50)
[2023-09-15] MEDS: ASPIRIN 81 MG TAB.CHEW GT SCH (09:53)
[2023-09-15] MEDS: FERROUS SULFATE 300 MG/5 ML UDC GT SCH ×2 (09:53→20:45)
[2023-09-15] MEDS: CEFEPIME 1 GM in D5W 50 ML IV SCH (09:53)
[2023-09-15] MEDS: AMIODARONE HCL 200 MG TABLET GT SCH ×2 (09:53→20:54)
[2023-09-15] MEDS: ACETAMINOPHEN 500 MG TABLET PO PRN (09:56)
[2023-09-15] MEDS: LevETIRAcetam 500 MG/5 ML UDC ORAL LIQUID GT SCH ×2 (09:56→20:46)
[2023-09-15] MEDS ORDERED: VANCOMYCIN HCL 1,000 MG in NS 250 ML IV ONE (11:00)
[2023-09-15] MEDS: PIPERACILLIN/TAZO 2.25G/DEX-IS 50 ML IV SCH ×3 (14:24→23:55)
[2023-09-15] MEDS: EPOETIN ALFA 4,000 UNITS/ML VIAL SUBCUT SCH (17:58)
[2023-09-15] MEDS ORDERED: METOCLOPRAMIDE HCL 10 MG/10 ML UDC GT PRN (19:30)
[2023-09-15] MEDS: IPRATROPIUM/ALBUTEROL SULFATE 3 ML AMPUL.NEB (DUONEB) INH SCH ×2 (22:19→23:53)
[2023-09-16] VITALS (14 sets, daily range): BP systolic 95–119; PULSE 112–125; RESP 16–21; TEMP 98.2–101.7; O2SAT 98–100
[2023-09-16] MEDS: IPRATROPIUM/ALBUTEROL SULFATE 3 ML AMPUL.NEB (DUONEB) INH SCH ×5 (03:25→21:59)
[2023-09-16] MEDS: PIPERACILLIN/TAZO 2.25G/DEX-IS 50 ML IV SCH (06:42)
[2023-09-16 08:28] LABS: CALCIUM 9.2 mg/dL (8.4-11.0); CREATININE 6.07 mg/dL (0.55-1.30); POTASSIUM 4.2 mmol/L (3.5-5.1)
[2023-09-16 08:37] LABS: BASOPHILS % (AUTO) 0.3 % (0.0-2.0); EOSINOPHILS # (AUTO) 0.1 K/uL (0.0-0.4); EOSINOPHILS % (AUTO) 0.6 % (0.0-4.0); HEMATOCRIT 25.2 % (36-54); HEMOGLOBIN 8.1 g/dL (14.0-18.0); LYMPHOCYTES # (AUTO) 1.4 K/uL (1.0-5.5); LYMPHOCYTES % (AUTO) 9.9 % (20.5-51.5); MEAN CORPUSCULAR HEMOGLOBIN 29 pg (27-31); MEAN CORPUSCULAR HGB CONC 32 % (32-36); MEAN CORPUSCULAR VOLUME 89 fL (79.0-98.0); MONOCYTES # (AUTO) 0.6 K/uL (0.0-1.0); MONOCYTES % (AUTO) 4.3 % (1.7-9.3); NEUTROPHILS # (AUTO) 12.2 K/uL (1.8-7.7); NEUTROPHILS % (AUTO) 84.9 % (40.0-70.0); PLATELET COUNT (AUTO) 228 K/uL (130-430); RED BLOOD CELL COUNT(AUTO) 2.83 MIL/uL (4.2-6.2); RED CELL DISTRIBUTION WIDTH 19.9 % (9.0-15.0); WHITE BLOOD COUNT (AUTO) 14.4 K/uL (4.8-10.8)
[2023-09-16] MEDS: AMIODARONE HCL 200 MG TABLET GT SCH ×2 (09:00→21:14)
[2023-09-16] MEDS: DOCUSATE SODIUM 100 MG/10 ML UDC PO SCH (10:19)
[2023-09-16] MEDS: FERROUS SULFATE 300 MG/5 ML UDC GT SCH ×2 (10:20→21:14)
[2023-09-16] MEDS: NEPHROVITE, (FOLIC ACID/VITAMIN B COMP W-C 1 TAB) GT SCH (10:20)
[2023-09-16] MEDS: ASPIRIN 81 MG TAB.CHEW GT SCH (10:20)
[2023-09-16] MEDS: LevETIRAcetam 500 MG/5 ML UDC ORAL LIQUID GT SCH ×2 (10:21→21:14)
[2023-09-16] MEDS: ASCORBIC ACID 500 MG TABLET GT SCH (10:33)
[2023-09-16] MEDS: NAPH,MB-DB/K PH,MBDB 250 MG TAB GT SCH ×2 (10:33→21:14)
[2023-09-16] MEDS ORDERED: NS 500 ML IV ONE (10:45)
[2023-09-16] MEDS: ACETAMINOPHEN 500 MG TABLET PO PRN (19:37)
[2023-09-16] MEDS: CEFIDEROCOL SULFATE TOSYLATE 0.75 GM in NS 100 ML IV SCH (21:14)
[2023-09-17] VITALS (21 sets, daily range): BP systolic 92–110; PULSE 97–115; RESP 16–23; TEMP 98.4–100.2; O2SAT 98–100
[2023-09-17] MEDS: IPRATROPIUM/ALBUTEROL SULFATE 3 ML AMPUL.NEB (DUONEB) INH SCH ×5 (00:18→15:28)
[2023-09-17] MEDS: ACETAMINOPHEN 500 MG TABLET PO PRN ×2 (02:22→20:48)
[2023-09-17 06:28] LABS: CALCIUM 9.2 mg/dL (8.4-11.0); POTASSIUM 3.6 mmol/L (3.5-5.1)
[2023-09-17 06:31] LABS: CREATININE 7.91 mg/dL (0.55-1.30)
[2023-09-17 07:21] LABS: BASOPHILS # (AUTO) 0.1 K/uL (0.0-0.2); BASOPHILS % (AUTO) 0.6 % (0.0-2.0); LYMPHOCYTES # (AUTO) 1.3 K/uL (1.0-5.5); LYMPHOCYTES % (AUTO) 12.4 % (20.5-51.5); MEAN CORPUSCULAR HEMOGLOBIN 29 pg (27-31); MEAN CORPUSCULAR HGB CONC 33 % (32-36); MEAN CORPUSCULAR VOLUME 88 fL (79.0-98.0); MONOCYTES # (AUTO) 0.7 K/uL (0.0-1.0); MONOCYTES % (AUTO) 6.7 % (1.7-9.3); NEUTROPHILS # (AUTO) 8.2 K/uL (1.8-7.7); NEUTROPHILS % (AUTO) 80.3 % (40.0-70.0); PLATELET COUNT (AUTO) 197 K/uL (130-430); RED CELL DISTRIBUTION WIDTH 19.6 % (9.0-15.0); WHITE BLOOD COUNT (AUTO) 10.3 K/uL (4.8-10.8)
[2023-09-17 07:26] LABS: HEMOGLOBIN 6.6 g/dL (14.0-18.0)
[2023-09-17 07:27] LABS: HEMATOCRIT 20.3 % (36-54)
[2023-09-17] MEDS: DOCUSATE SODIUM 100 MG/10 ML UDC PO SCH (09:00)
[2023-09-17] MEDS: ASPIRIN 81 MG TAB.CHEW GT SCH (09:00)
[2023-09-17] MEDS: ASCORBIC ACID 500 MG TABLET GT SCH (10:03)
[2023-09-17] MEDS: NAPH,MB-DB/K PH,MBDB 250 MG TAB GT SCH ×2 (10:03→20:47)
[2023-09-17] MEDS: NEPHROVITE, (FOLIC ACID/VITAMIN B COMP W-C 1 TAB) GT SCH (10:03)
[2023-09-17] MEDS: AMIODARONE HCL 200 MG TABLET GT SCH ×2 (10:03→20:47)
[2023-09-17] MEDS: FERROUS SULFATE 300 MG/5 ML UDC GT SCH ×2 (10:03→20:48)
[2023-09-17] MEDS: LevETIRAcetam 500 MG/5 ML UDC ORAL LIQUID GT SCH ×2 (10:04→20:48)
[2023-09-17] MEDS: CEFIDEROCOL SULFATE TOSYLATE 0.75 GM in NS 100 ML IV SCH ×2 (10:08→20:48)
[2023-09-18] VITALS (19 sets, daily range): BP systolic 102–132; PULSE 88–110; RESP 16–22; TEMP 98.3–101.1; O2SAT 97–100
[2023-09-18] MEDS: IPRATROPIUM/ALBUTEROL SULFATE 3 ML AMPUL.NEB (DUONEB) INH SCH ×6 (02:10→23:15)
[2023-09-18] MEDS: ACETAMINOPHEN 500 MG TABLET PO PRN ×3 (03:27→21:48)
[2023-09-18 05:59] LABS: BASOPHILS # (AUTO) 0.1 K/uL (0.0-0.2); BASOPHILS % (AUTO) 0.6 % (0.0-2.0); EOSINOPHILS % (AUTO) 0.2 % (0.0-4.0); HEMOGLOBIN 7.2 g/dL (14.0-18.0); LYMPHOCYTES % (AUTO) 11.1 % (20.5-51.5); MEAN CORPUSCULAR HEMOGLOBIN 29 pg (27-31); MEAN CORPUSCULAR HGB CONC 33 % (32-36); MEAN CORPUSCULAR VOLUME 89 fL (79.0-98.0); MONOCYTES # (AUTO) 0.6 K/uL (0.0-1.0); MONOCYTES % (AUTO) 6.7 % (1.7-9.3); NEUTROPHILS # (AUTO) 7.5 K/uL (1.8-7.7); NEUTROPHILS % (AUTO) 81.4 % (40.0-70.0); PLATELET COUNT (AUTO) 192 K/uL (130-430); RED BLOOD CELL COUNT(AUTO) 2.43 MIL/uL (4.2-6.2); RED CELL DISTRIBUTION WIDTH 18.6 % (9.0-15.0); WHITE BLOOD COUNT (AUTO) 9.2 K/uL (4.8-10.8)
[2023-09-18 06:18] LABS: HEMATOCRIT 21.6 % (36-54)
[2023-09-18 06:34] LABS: CALCIUM 9.2 mg/dL (8.4-11.0); POTASSIUM 3.6 mmol/L (3.5-5.1)
[2023-09-18 06:37] LABS: CREATININE 9.76 mg/dL (0.55-1.30)
[2023-09-18] MEDS: CEFIDEROCOL SULFATE TOSYLATE 0.75 GM in NS 100 ML IV SCH ×2 (08:32→21:16)
[2023-09-18] MEDS: DOCUSATE SODIUM 100 MG/10 ML UDC PO SCH (09:00)
[2023-09-18] MEDS: NEPHROVITE, (FOLIC ACID/VITAMIN B COMP W-C 1 TAB) GT SCH (09:20)
[2023-09-18] MEDS: LevETIRAcetam 500 MG/5 ML UDC ORAL LIQUID GT SCH ×2 (09:20→21:15)
[2023-09-18] MEDS: FERROUS SULFATE 300 MG/5 ML UDC GT SCH ×2 (09:20→21:15)
[2023-09-18] MEDS: AMIODARONE HCL 200 MG TABLET GT SCH ×2 (09:21→21:14)
[2023-09-18] MEDS: ASPIRIN 81 MG TAB.CHEW GT SCH (09:21)
[2023-09-18] MEDS: NAPH,MB-DB/K PH,MBDB 250 MG TAB GT SCH ×2 (09:21→21:15)
[2023-09-18] MEDS: ASCORBIC ACID 500 MG TABLET GT SCH (09:21)
[2023-09-18] MEDS ORDERED: VANCOMYCIN HCL 1,000 MG in NS 250 ML IV ONE (13:00)
[2023-09-18] MEDS: EPOETIN ALFA 4,000 UNITS/ML VIAL SUBCUT SCH (16:45)
[2023-09-19] VITALS (16 sets, daily range): BP systolic 118–135; PULSE 77–95; RESP 16–18; TEMP 98.3–99.4; O2SAT 97–100
[2023-09-19] MEDS: IPRATROPIUM/ALBUTEROL SULFATE 3 ML AMPUL.NEB (DUONEB) INH SCH ×6 (05:45→23:26)
[2023-09-19 06:33] LABS: BASOPHILS % (AUTO) 0.3 % (0.0-2.0); EOSINOPHILS # (AUTO) 0.1 K/uL (0.0-0.4); EOSINOPHILS % (AUTO) 0.7 % (0.0-4.0); LYMPHOCYTES # (AUTO) 1.3 K/uL (1.0-5.5); MEAN CORPUSCULAR HEMOGLOBIN 30 pg (27-31); MEAN CORPUSCULAR HGB CONC 34 % (32-36); MEAN CORPUSCULAR VOLUME 89 fL (79.0-98.0); MONOCYTES # (AUTO) 0.6 K/uL (0.0-1.0); MONOCYTES % (AUTO) 7.1 % (1.7-9.3); NEUTROPHILS # (AUTO) 6.5 K/uL (1.8-7.7); NEUTROPHILS % (AUTO) 76.9 % (40.0-70.0); PLATELET COUNT (AUTO) 203 K/uL (130-430); RED BLOOD CELL COUNT(AUTO) 2.09 MIL/uL (4.2-6.2); RED CELL DISTRIBUTION WIDTH 18.5 % (9.0-15.0); WHITE BLOOD COUNT (AUTO) 8.4 K/uL (4.8-10.8)
[2023-09-19 06:51] LABS: HEMOGLOBIN 6.3 g/dL (14.0-18.0)
[2023-09-19 06:52] LABS: HEMATOCRIT 18.6 % (36-54)
[2023-09-19 07:02] LABS: CALCIUM 9.2 mg/dL (8.4-11.0); CREATININE 5.67 mg/dL (0.55-1.30); POTASSIUM 3.8 mmol/L (3.5-5.1)
[2023-09-19] MEDS: CEFIDEROCOL SULFATE TOSYLATE 0.75 GM in NS 100 ML IV SCH ×2 (10:16→22:29)
[2023-09-19] MEDS: NAPH,MB-DB/K PH,MBDB 250 MG TAB GT SCH ×2 (10:17→21:00)
[2023-09-19] MEDS: FERROUS SULFATE 300 MG/5 ML UDC GT SCH ×2 (10:17→22:27)
[2023-09-19] MEDS: PANTOPRAZOLE SODIUM 40 MG/VIAL (PROTONIX) IVP SCH ×2 (10:17→22:34)
[2023-09-19] MEDS: DOCUSATE SODIUM 100 MG/10 ML UDC PO SCH (10:17)
[2023-09-19] MEDS: ASCORBIC ACID 500 MG TABLET GT SCH (10:18)
[2023-09-19] MEDS: LevETIRAcetam 500 MG/5 ML UDC ORAL LIQUID GT SCH ×2 (10:18→22:25)
[2023-09-19] MEDS: AMIODARONE HCL 200 MG TABLET GT SCH ×2 (10:18→22:27)
[2023-09-19] MEDS: NEPHROVITE, (FOLIC ACID/VITAMIN B COMP W-C 1 TAB) GT SCH (10:18)
[2023-09-19] MEDS: ACETAMINOPHEN 500 MG TABLET PO PRN (18:05)
[2023-09-19] MEDS: ONDANSETRON HCL 4 MG/2 ML VIAL IVP PRN (22:25)
[2023-09-20] VITALS (16 sets, daily range): BP systolic 129–145; PULSE 83–100; RESP 16; TEMP 98–99.1; O2SAT 96–100
[2023-09-20] MEDS: IPRATROPIUM/ALBUTEROL SULFATE 3 ML AMPUL.NEB (DUONEB) INH SCH ×4 (03:52→15:09)
[2023-09-20 06:43] LABS: BASOPHILS # (AUTO) 0.1 K/uL (0.0-0.2); BASOPHILS % (AUTO) 0.6 % (0.0-2.0); EOSINOPHILS # (AUTO) 0.1 K/uL (0.0-0.4); EOSINOPHILS % (AUTO) 1.6 % (0.0-4.0); HEMATOCRIT 23.1 % (36-54); HEMOGLOBIN 7.8 g/dL (14.0-18.0); LYMPHOCYTES # (AUTO) 1.2 K/uL (1.0-5.5); LYMPHOCYTES % (AUTO) 13.5 % (20.5-51.5); MEAN CORPUSCULAR HEMOGLOBIN 30 pg (27-31); MEAN CORPUSCULAR HGB CONC 34 % (32-36); MEAN CORPUSCULAR VOLUME 89 fL (79.0-98.0); MONOCYTES # (AUTO) 0.5 K/uL (0.0-1.0); MONOCYTES % (AUTO) 5.6 % (1.7-9.3); NEUTROPHILS # (AUTO) 7.1 K/uL (1.8-7.7); NEUTROPHILS % (AUTO) 78.7 % (40.0-70.0); PLATELET COUNT (AUTO) 218 K/uL (130-430); RED BLOOD CELL COUNT(AUTO) 2.61 MIL/uL (4.2-6.2); RED CELL DISTRIBUTION WIDTH 17.7 % (9.0-15.0)
[2023-09-20 07:13] LABS: CALCIUM 9.4 mg/dL (8.4-11.0); CREATININE 7.46 mg/dL (0.55-1.30); POTASSIUM 3.9 mmol/L (3.5-5.1); VANCOMYCIN,RANDOM 20.8 ug/mL (20.0-30.0)
[2023-09-20] MEDS: DOCUSATE SODIUM 100 MG/10 ML UDC PO SCH (09:00)
[2023-09-20] MEDS: NEPHROVITE, (FOLIC ACID/VITAMIN B COMP W-C 1 TAB) GT SCH (09:09)
[2023-09-20] MEDS: NAPH,MB-DB/K PH,MBDB 250 MG TAB GT SCH (09:09)
[2023-09-20] MEDS: AMIODARONE HCL 200 MG TABLET GT SCH (09:09)
[2023-09-20] MEDS: FERROUS SULFATE 300 MG/5 ML UDC GT SCH (09:10)
[2023-09-20] MEDS: CEFIDEROCOL SULFATE TOSYLATE 0.75 GM in NS 100 ML IV SCH (09:10)
[2023-09-20] MEDS: ASCORBIC ACID 500 MG TABLET GT SCH (09:10)
[2023-09-20] MEDS: LevETIRAcetam 500 MG/5 ML UDC ORAL LIQUID GT SCH (09:10)
[2023-09-20] MEDS: PANTOPRAZOLE SODIUM 40 MG/VIAL (PROTONIX) IVP SCH (09:10)
[2023-09-20] MEDS ORDERED: AMIKACIN SULFATE IV ONE (13:00)
[2023-09-20] MEDS ORDERED: D5W IV ONE (13:00)
[2023-09-20] MEDS: EPOETIN ALFA 4,000 UNITS/ML VIAL SUBCUT SCH (17:00)
[2023-09-20] MEDS: ACETAMINOPHEN 500 MG TABLET PO PRN (17:23)
[2023-09-20] MEDS: IPRATROPIUM/ALBUTEROL SULFATE 3 ML AMPUL.NEB (DUONEB) INH PRN (17:26)
== END 2023-09-20 19:45 | DRG 207 ==
LOC: SED 11:57 → STU 20:45
PROVIDERS: ADMIT General Practice; ATTEND General Practice
PROC: 5A1955Z Respiratory Ventilation, Greater than 96 Consecutive Hours (ICD-10-PCS; principal; 2023-09-11)
PROC: 5A1D70Z Performance of Urinary Filtration, Intermittent, Less than 6 Hours Per Day (ICD-10-PCS; 2023-09-11)
PROC: 5A1D70Z Performance of Urinary Filtration, Intermittent, Less than 6 Hours Per Day (ICD-10-PCS; 2023-09-15)
PROC: 5A1D70Z Performance of Urinary Filtration, Intermittent, Less than 6 Hours Per Day (ICD-10-PCS; 2023-09-18)
PROC: 30233N1 Transfusion of Nonautologous Red Blood Cells into Peripheral Vein, Percutaneous Approach (ICD-10-PCS; 2023-09-19)
PROC: 0JPT3XZ Removal of Tunneled Vascular Access Device from Trunk Subcutaneous Tissue and Fascia, Percutaneous Approach (ICD-10-PCS; 2023-09-19)
PROC: 02PYX3Z Removal of Infusion Device from Great Vessel, External Approach (ICD-10-PCS; 2023-09-19)
DX: J69.0 Pneumonitis due to inhalation of food and vomit (principal); E43 Unspecified severe protein-calorie malnutrition; G93.41 Metabolic encephalopathy; L89.154 Pressure ulcer of sacral region, stage 4; N18.6 End stage renal disease; T80.211A Bloodstream infection due to central venous catheter, initial encounter; Z99.11 Dependence on respirator [ventilator] status; J96.10 Chronic respiratory failure, unspecified whether with hypoxia or hypercapnia; I12.0 Hypertensive chronic kidney disease with stage 5 chronic kidney disease or end stage renal disease; J95.851 Ventilator associated pneumonia; Y83.8 Other surgical procedures as the cause of abnormal reaction of the patient, or of later complication, without mention of misadventure at the time of the procedure; R13.12 Dysphagia, oropharyngeal phase; D64.9 Anemia, unspecified; R74.01 Elevation of levels of liver transaminase levels; Z20.822 Contact with and (suspected) exposure to COVID-19; Z74.01 Bed confinement status; Z93.0 Tracheostomy status; Z93.1 Gastrostomy status; Z88.8 Allergy status to other drugs, medicaments and biological substances; Z79.899 Other long term (current) drug therapy; Y92.89 Other specified places as the place of occurrence of the external cause; Z79.82 Long term (current) use of aspirin; Z68.21 Body mass index [BMI] 21.0-21.9, adult
CPT/HCPCS: 36415; 71045; 76700-TC; 80048; 80076; 80202; 82272; 82607; 82728; 82746; 83037; 83540; 83550; 83605; 83735; 84484; 85025; 85610-TC; 85730-TC; 86886; 86900; 86901; 86920; 87040; 87070-TC; 87081; 87205-TC; 90935; 90937; 93005; 94002; 94003; 94640; 94760; 96365; 99285; C9113; G0378; J0278; J0692; J0699; J0885; J1644; J2405; J2543; J3370; J7050; J7060; P9021